=== PATIENT | female | born 1955 ===

== ENCOUNTER 2024-12-10 11:16 | Day surgery (SDC) | payer OTHER, SELFPAY ==
[2024-12-02 11:50] VITALS: BMI 19.1
[2024-12-02 13:02] LABS: Hematocrit 39.7 % (37.0-47.0); Hemoglobin 13.3 g/dL (12.0-16.0); Mean Corp Hgb Conc. 33.5 g/dL (33.0-37.0); Mean Corpuscular Hgb 30.4 pg (27.0-31.0); Mean Corpuscular Volume 90.6 fL (81.0-99.0); Mean Platelet Volume 9.6 fL (7.4-10.4); Platelet Count 164 10^3/uL (130-400); Red Blood Cell Count 4.38 10^6/uL (4.20-5.40); Red Cell Dist. Width 13.3 % (11.5-14.5)
[2024-12-02 13:33] LABS: ALT (SGPT) 20 U/L (0-35); AST (SGOT) 25 U/L (14-36); Albumin 4.6 g/dl (3.5-5.0); Alkaline Phosphatase 41 U/L (38-126); Blood Urea Nitrogen 14 mg/dl (7-17); Calcium 10.4 mg/dl (8.4-10.2); Carbon Dioxide 27 mmol/L (22-30); Chloride 101 mmol/L (98-107); Estimated Creatinine Clearance 61 ml/min; Glucose 90 mg/dl (70-99); Potassium 4.6 mmol/L (3.5-5.1); Sodium 131 mmol/L (135-145); Total Bilirubin 0.5 mg/dl (0.2-1.3); Total Protein 7.3 g/dl (6.3-8.2); eGFR > 60.00
[2024-12-10 11:30] VITALS: BP 171/62
[2024-12-10 11:52] VITALS: BP 171/62
[2024-12-10 12:21] VITALS: BMI 19.1
--- NOTE | 2024-12-10 14:47 | ITS.CL.PACE ---
Software Implementation Project Manager - Pacemaker Implant
Pacemaker Implant
Procedure Report:
Primary Care Doctor: Dr Farheen Silva
Primary Lead Business Systems Analyst: Dr Rona Antonio
Procedure Date: 12/10/2024
Name of procedure:
1. Placement of a dual-chamber pacemaker with left bundle area pacing lead for conduction system pacing
2. Subclavian venography
History:
1. Patient is a pleasant 69-year-old female with past medical history significant for hypertension, hyperlipidemia, history of breast cancer status postmastectomy, chemotherapy, focal radiation, and symptomatic irreversible bradycardia with sick
sinus syndrome and junctional rhythm.
2. Please refer to H&P for complete history.
Indication:
Symptomatic irreversible bradycardia
Sick sinus syndrome
Junctional bradycardia
Methods:
After informed consent was obtained, the patient was brought to the EP laboratory in a postabsorptive, nonsedated state. Peripheral IV access was established. Prophylactic antibiotics were administered prior to incision. Continuous ECG, blood
pressure, and pulse oximetry were initiated. Cardioversion patch electrodes were placed on the patient's chest and back. A grounding patch was applied to the skin. Sedation was administered by anesthesia services.
In order to define the extrathoracic portion of the subclavian vein and exclude significant venous obstruction or anomalous anatomy, subclavian venography was performed prior to the procedure. Using the patient's right peripheral IV, contrast was
injected and images were recorded. The right subclavian vein and SVC were found to be widely patent.
The right chest was prepared and draped in a sterile fashion. A time-out was performed. Local anesthesia was injected in the subcutaneous tissue in the infraclavicular area. An incision was made medial to the deltopectoral groove. The
subcutaneous tissue was dissected the level of the prepectoral fascia. A subcutaneous pocket was created. Under fluoroscopic guidance and with the assistance of the images from the venogram, 2 separate venipunctures were made using micropuncture
and modified Seldinger technique. These were performed in the extrathoracic portion of the subclavian vein. Guidewires were passed and two peel-away sheaths were placed, and used to advance leads into the circulation.
Fluoroscopy was used to determine likely anatomic site for left bundle branch pacing. The Medtronic C315 sheath was used to deliver the Medtronic 3830 Selectsecure pacing lead with the helix exposed just exposed from the sheath tip during continuous
monitoring when pacemapping the septum during gentle clockwise rotation to obtain a paced QRS morphology of a W pattern in lead V1. Once the suspected optimal site was identified, lead deployment was performed with several rapid rotations as paced
QRS morphology was intermittently monitored until a paced QRS complex in lead V1 demonstrated development of an R wave (qR or rSR). With initial placement, the unipolar pacing impedance drop by greater than 400 ohms suggesting perforation into the
left ventricular cavity and the lead was carefully withdrawn and repositioned. Unipolar pacing impedance dropped by approximately 100-200 ohms suggesting it had reached the left ventricular subendocardial. Stable VEgm injury current is present
throughout lead position and at end of case. Final unipolar pacing impedance is 900 Ohms. Unipolar pacing threshold is stable at 0.5 V @ 0.4 ms. The patient had pre-existing narrow QRS. Final conduction system paced QRS complex duration is 106 ms,
LVAT is 58 ms, and peak V5 -> peak V1 timing is 81 ms. The C315 sheath was slit under fluoroscopy ensuring lead position and stability.
Next, the right atrial lead was positioned in the right atrial appendage. Adequate sensing and pacing parameters were found, and no diaphragmatic stimulation was seen with high-output pacing. Both sheaths were split, and the leads were secured to
the fascia with Ethibond ties.
The pocket was flushed with antibiotic solution and hemostasis was assured. The generator was connected to the leads and placed inside the pocket. The device was sutured to the fascia. Antibiotic envelope was used. The wound was closed with 3
running layers of absorbable suture, and steri-strips were applied. Dressing applied over steri-strips in standard fashion.
Following the procedure, the patient was taken to the recovery area in stable condition. A chest x-ray to be obtained post procedure as routine.
Lead parameters and device programming:
- RA Lead (Medtronic, Model 5076, #[id number]): Sensing 2.4 mV, Pacing threshold 1.75 V at 0.4 ms, Imp 646 ohm
- RV Lead (Medtronic, Model 3830, #[id number]): Sensing 8.4 mV, Pacing threshold 0.5 V at 0.4 ms, Imp 630 Ohm
- Device: Medtronic, Model W1DR01 pacemaker (#[id number]), programmed [id number]�[id number], mode switch on, lower rate 60, upper tracking rate 130 ppm
Conclusions:
1. Successful placement of a dual-chamber pacemaker with conduction system pacing (LBBAP)
2. Subclavian venography
Recommendations:
- Admit
- Chest x-ray [facility] in AM.
- IV antibiotics while the patient is admitted.
- OK to resume home medications as indicated
- Pressure dressing to be removed in AM, aquacell to remain until wound check
- Follow-up will be arranged in the office in 7-10 days post-discharge for incision check
Celestine Rahman DO, FACC, RS
Clinical Cardiac Phone Triage Specialist
cc: Dr Farheen Silva; Dr Rona Antonio
[2024-12-10 17:30] VITALS: BP 134/82
[2024-12-10 17:45] VITALS: BP 147/93
[2024-12-10 19:28] VITALS: BP 144/82
[2024-12-10] MEDS: TYLENOL 650 MG PO (20:22)
[2024-12-10] MEDS: ANCEF 5 IV (22:01)
[2024-12-10 23:22] VITALS: BP 112/74
--- NOTE | 2024-12-11 02:22 | PTCARENOTE ---
Received pt @ change of shift. AAOx3. VSS. Immobilizer in place. Pressure dressing, Aquacel dressing on right chest wall. No swelling, ecchymosis present @ this time. Chest X-ray completed. Discussed plan of care for evening. Pt verbalizes
understanding. Call [facility] within reach.
[2024-12-11 05:11] VITALS: BP 134/82
[2024-12-11] MEDS: ANCEF 5 IV (05:31)
[2024-12-11 05:59] LABS: Hematocrit 39.5 % (37.0-47.0); Hemoglobin 13.7 g/dL (12.0-16.0); Mean Corp Hgb Conc. 34.7 g/dL (33.0-37.0); Mean Corpuscular Hgb 30.7 pg (27.0-31.0); Mean Corpuscular Volume 88.6 fL (81.0-99.0); Mean Platelet Volume 8.9 fL (7.4-10.4); Platelet Count 169 10^3/uL (130-400); Red Blood Cell Count 4.46 10^6/uL (4.20-5.40); White Blood Cell Count 5.9 10^3/uL (4.8-10.8)
--- NOTE | 2024-12-11 07:43 | W.PN.CARDCBS ---
Addendum entered and electronically signed by Gavino Julien MD 12/11/24 13:02:
Patient seen, interviewed and examined by me.
She tells me she feels well. She denies any discomfort at her chest at the site of device implantation.
Well-appearing, no acute distress
Dressing over the left chest is clean and dry
Regular rate and rhythm with normal S1 and S2, no S3 no S4. There is a grade 1/6 apical holosystolic murmur and no rubs. PMI is normally placed.
Lungs are clear to auscultation bilaterally without wheezes rales or rhonchi.
Abdomen soft nontender nondistended with normoactive bowel sounds
Extremities show trace pretibial edema bilaterally no clubbing or cyanosis.
Neurologic exam is grossly nonfocal.
Reviewed chest x-ray, there is normal appearance of the device and lead system. There is no pneumothorax.
Telemetry shows atrial pacing with intact AV conduction
Activity restrictions reviewed with her.
She has appointment to follow-up for wound check.
All of her questions have been answered
Stable for discharge to home.
Original Note:
Today's Communication / Plan
-
post PPM, stable for d/c home
Impression / Plan
-
Primary Care Doctor: Dr Farheen Silva
Primary Drilling Rig Operator: Dr Rona Antonio
69-year-old female with past medical history significant for hypertension, hyperlipidemia, history of breast cancer status postmastectomy, chemotherapy, focal radiation, and symptomatic irreversible bradycardia with sick sinus syndrome and
junctional rhythm.
Impression:
Symptomatic bradycardia
SSS
post DC PPM Left bundle area pacing lead 12/10/24
HTN
HLD
GERD
RA
Hyponatremia
Breast cancer 2008 post b/l mastectomy and lymph node dissection Left, XRT
Plan:
post device
site stable
tele Apaced with occ PAC's
CXR no PTX, leads in good position
Continue losartan and amlodipine for HTN
HLD continue atorvastatin
Activity restrictions reviewed with pt and daughter via phone
incision check DCA 1 week
continue cardiac care with Dr. Antonio
home today
Progress Note - Drilling Rig Operator
Subjective
Date of Service: December 11, 2024
mild inc pain relief with tylenol, no cp,sob
Objective
Labs:
12/11/24 05:30
Labs
Hgb 13.7 g/dL (12.0-16.0) 12/11/24 05:30
Hct 39.5 % (37.0-47.0) 12/11/24 05:30
Plt Count 169 10^3/uL (130-400) 12/11/24 05:30
Sodium Cancelled 12/11/24 05:30
Potassium Cancelled 12/11/24 05:30
BUN Cancelled 12/11/24 05:30
Creatinine Cancelled 12/11/24 05:30
Glucose Cancelled 12/11/24 05:30
Vital Signs and I&O:
Vital Signs
Temp Pulse Resp BP Pulse Ox
97.7 F 65 16 134/82 98
12/11/24 05:10 12/11/24 05:11 12/11/24 05:10 12/11/24 05:11 12/11/24 05:10
Vital Signs
Temp Pulse Resp BP Pulse Ox
97.7 F 65 16 134/82 98
12/11/24 05:10 12/11/24 05:11 12/11/24 05:10 12/11/24 05:11 12/11/24 05:10
Physical Exam
Physical Exam
NAD< AOx3
S1, S2, RRR
CTAB,non labored, no wheeze
SNTND bsx4
R CW dressing with marked old drainage, no HT
[2024-12-11 08:23] VITALS: BP 131/87
[2024-12-11] MEDS: COZAAR 100 MG PO (09:03)
[2024-12-11] MEDS: LIPITOR 10 MG PO (09:03)
[2024-12-11] MEDS: NORVASC 5 MG PO (09:03)
--- NOTE | 2024-12-11 09:45 | CM ---
Reviewed chart. Met with Mrs. Ozuna and her [id number] to review discharge plans. [id number]-[id number] states prior to admission she reside with her son and [id number] in a two story home with three steps to enter. She has to go up a full
flight of steps to get to bedroom/full bathroom. She has a powder room on the first floor. Prior to admission she was independent with ambulation and adls. She does not have any DME in the home. She states she has a prescription plan and uses [facility]. The discharge plan is to return home with her son and [id number] when medically stable.
[2024-12-11 10:21] LABS: Blood Urea Nitrogen 17 mg/dl (7-17); Calcium 10.8 mg/dl (8.4-10.2); Carbon Dioxide 27 mmol/L (22-30); Chloride 97 mmol/L (98-107); Estimated Creatinine Clearance 61 ml/min; Glucose 133 mg/dl (70-99); Potassium 4.7 mmol/L (3.5-5.1); Sodium 130 mmol/L (135-145); eGFR > 60.00
[2024-12-11 10:41] VITALS: BP 143/85
--- NOTE | 2024-12-11 10:53 | W.DS.TRANS ---
DC Summary - Grid Caster
-
Discharge Instructions:
Discharge Diagnosis/Procedures Pacemaker implant
Diet Low Cholesterol
Driving Restrictions No driving for 1 week
Instructions:
Stand-Alone Forms: DC Inst - Implanted Device
Changes to Home Medications: No
Discharge Medications:
DC Medications w/original date entered in [facility]
amlodipine 5 mg tablet 5 mg PO DAILY 11/25/24
atorvastatin 10 mg tablet 10 mg PO DAILY 11/25/24
cholecalciferol (vitamin D3) 25 mcg (1,000 unit) tablet (Vitamin D3) 25 mcg PO DAILY 11/25/24
denosumab 60 mg/mL subcutaneous syringe (Prolia) 60 mg SC [id number] 12/02/24
losartan 100 mg tablet 100 mg PO DAILY 12/02/24
Home Medication Changes
Pending Results: No
== END 2024-12-11 11:15 | disposition home or self-care (01) ==
LOC: CATH 11:16
PROVIDERS: Nurse Practitioner; ATTENDING PHYSICIAN Internal Medicine Cardiovascular Disease; FAMILY PHYSICIAN Family Medicine
DX: I49.5 Sick sinus syndrome (principal); I11.9 Hypertensive heart disease without heart failure; E78.5 Hyperlipidemia, unspecified; K21.9 Gastro-esophageal reflux disease without esophagitis; M06.9 Rheumatoid arthritis, unspecified; E87.1 Hypo-osmolality and hyponatremia; C50.912 Malignant neoplasm of unspecified site of left female breast; Z85.3 Personal history of malignant neoplasm of breast; Z79.899 Other long term (current) drug therapy; M81.0 Age-related osteoporosis without current pathological fracture; I49.1 Atrial premature depolarization
CPT/HCPCS: 33208; 36415; 71045; 80048; 80053; 85027; 93005; C1769; C1785; C1887; C1892; C1898